=== PATIENT | male | born 1960 | race Caucasian/White ===

== ENCOUNTER 2021-02-09 03:40 | Emergency (ER) | payer SELFPAY ==
[~2021-02-09] VITALS: Ht 173 cm; Wt 63.5 kg
[2021-02-09 04:08] LABS: BILIRUBIN,URINE NEGATIVE (NEGATIVE); CLARITY,URINE SL CLOUDY; COLOR,URINE YELLOW; GLUCOSE, URINE (UA) NEGATIVE (NEGATIVE); KETONES,URINE NEGATIVE (NEGATIVE); LEUKOCYTE ESTERASE ,URINE TRACE (NEGATIVE); NITRITE,URINE NEGATIVE (NEGATIVE); PROTEIN,URINE NEGATIVE (NEGATIVE)
[2021-02-09 04:21] LABS: BASOPHILS # (AUTO) 0.1 10^3/uL (0.0-0.1); BASOPHILS % (AUTO) 1 % (0-10); EOSINOPHILS # (AUTO) 0.1 10^3/uL (0.0-0.3); EOSINOPHILS % (AUTO) 1 % (0-10); HEMATOCRIT 47 % (40-54); HEMOGLOBIN 15.8 g/dL (13.3-17.7); LYMPHOCYTES # (AUTO) 1.7 10^3/uL (1.0-4.0); LYMPHOCYTES % (AUTO) 22 % (12-44); MEAN CORPUSCULAR HEMOGLOBIN 30 pg (25-34); MEAN CORPUSCULAR HGB CONC 34 g/dL (32-36); MEAN CORPUSCULAR VOLUME 89 fL (80-99); MEAN PLATELET VOLUME 8.6 fL (9.0-12.2); MONOCYTES # (AUTO) 0.5 10^3/uL (0.0-1.0); MONOCYTES % (AUTO) 7 % (0-12); NEUTROPHILS # (AUTO) 5.3 10^3/uL (1.8-7.8); NEUTROPHILS % (AUTO) 69 % (42-75); PLATELET COUNT 350 10^3/uL (130-400); WHITE BLOOD COUNT 7.7 10^3/uL (4.3-11.0)
[2021-02-09 04:26] LABS: BACTERIA,URINE TRACE /HPF; RBC,URINE 0-2 /HPF
[2021-02-09 04:53] LABS: CHLORIDE 104 MMOL/L (98-107); POTASSIUM 3.7 MMOL/L (3.6-5.0); SODIUM 143 MMOL/L (135-145)
[2021-02-09 04:54] LABS: ALBUMIN 4.2 GM/DL (3.2-4.5)
[2021-02-09 04:55] LABS: CALCIUM 9.5 MG/DL (8.5-10.1)
[2021-02-09 04:56] LABS: GLUCOSE 100 MG/DL (70-105); TOTAL PROTEIN 6.7 GM/DL (6.4-8.2)
[2021-02-09 04:57] LABS: AMPHETAMINE SCREEN, URINE NEGATIVE (NEGATIVE); BARBITURATE SCREEN URINE NEGATIVE (NEGATIVE); BENZODIAZEPINES SCREEN URINE NEGATIVE (NEGATIVE); CANNABINOID SCREEN, URINE POSITIVE (NEGATIVE); COCAINE SCREEN URINE NEGATIVE (NEGATIVE); METHADONE STAT NEGATIVE (NEGATIVE); METHAMPHETAMINE SCREEN URINE S POSITIVE (NEGATIVE); OPIATE SCREEN URINE NEGATIVE (NEGATIVE); OXYCODONE STAT NEGATIVE (NEGATIVE); PROPOXYPHENE STAT NEGATIVE (NEGATIVE); TRICYCLIC ANTIDEPRESSANTS SCRE NEGATIVE (NEGATIVE)
[2021-02-09 04:57] LABS: CARBON DIOXIDE 28 MMOL/L (21-32)
[2021-02-09 04:58] LABS: BILIRUBIN,TOTAL 0.3 MG/DL (0.1-1.0)
[2021-02-09 05:00] LABS: ALKALINE PHOSPHATASE 70 U/L (40-136); CREATININE SERUM 1.01 MG/DL (0.60-1.30); GFR ESTIMATED > 60
[2021-02-09 05:01] LABS: BUN/CREATININE RATIO 12
[2021-02-09 05:03] LABS: ALANINE AMINOTRANSFERASE 19 U/L (0-55); SALICYLATE < 5.0 MG/DL (5.0-20.0)
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
[2021-02-09 05:22] LABS: ACETAMINOPHEN < 10 UG/ML (10-30)
[2021-02-09 05:25] LABS: TSH (THYROID ANALYZER) 1.54 UIU/ML (0.35-4.94)
[2021-02-09] MEDS ORDERED: NITR-65 PO (05:28)
[2021-02-09 05:34] VITALS: BP 0/0
== END 2021-02-09 05:37 | disposition home or self-care (01) ==
LOC: ER 03:42
DX: F15.90 Other stimulant use, unspecified, uncomplicated (principal); F41.9 Anxiety disorder, unspecified; N39.0 Urinary tract infection, site not specified; F12.90 Cannabis use, unspecified, uncomplicated; F19.90 Other psychoactive substance use, unspecified, uncomplicated; F17.290 Nicotine dependence, other tobacco product, uncomplicated; Z91.19 Patient's noncompliance with other medical treatment and regimen
CPT/HCPCS: 80053; 80306; 81000; 84443; 85025; 87088; 93005; 99284; G0480 ×3; 36415; 80320; 80329